=== PATIENT | female | born 1965 | race Hispanic/Latino ===

== ENCOUNTER 2019-09-13 06:17 | Day surgery (SDC) | payer BC ==
[2019-09-08 11:57] LABS: BASOPHILS % (AUTO) 0.7 % (0.0-5.0); EOSINOPHILS % (AUTO) 3.7 % (0.0-8.0); HEMATOCRIT 41.2 % (36-48); LYMPHOCYTES % (AUTO) 26.2 % (21.0-51.0); MEAN CORPUSCULAR HGB CONC 31.1 g/dL (32.0-36.0); MEAN CORPUSCULAR VOLUME 86.9 fL (79-99); MONOCYTES % (AUTO) 6.6 % (3.0-13.0); NEUTROPHILS % (AUTO) 62.1 % (40.0-77.0); PLATELET COUNT (AUTO) 201 K/uL (130-400); RED BLOOD CELL COUNT(AUTO) 4.74 MIL/uL (4.00-5.50); WHITE BLOOD COUNT (AUTO) 6.8 K/uL (4.8-10.8)
[2019-09-09 10:19] VITALS: BP 154/82
[~2019-09-13] VITALS: Ht 165.1 cm; Wt 101.8 kg
[2019-09-13] VITALS (17 sets, daily range): BP systolic 129–154; BP diastolic 62–78
[~2019-09-13 06:17] MED LIST: ACET-66 PO; IBUP-2784 PO
[2019-09-13] MEDS ORDERED: LACTATED RINGERS 1000ML 1,000 ML IV ONE (07:23)
[2019-09-13] MEDS ORDERED: PROPOFOL 10 MG/ML 20ML VIAL IV ONE (08:49)
[2019-09-13] MEDS ORDERED: FENTANYL CITRATE PF 50 MCG/1 ML 2ML VIAL ONE (08:50)
--- NOTE | 2019-09-13 11:15 | NUR ---
Pt discharged home, spouse picked her up, tolerating water, ambulating well, voided just prior to discharge. Pt with very little red blood to pad when arriving to day patient. No further bleeding noted upon discharge. Pad changed. Pt denies any further questions at this time. Addendum: 09/13/19 at 1319 by JOAQUINA MATIAS RN RN Pt given prescription for Tylenol #3.
== END 2019-09-13 11:15 | disposition home or self-care (01) ==
LOC: DAH 06:17
PROVIDERS: ATTEND Specialist
DX: N95.0 Postmenopausal bleeding (principal); N85.4 Malposition of uterus; Z88.0 Allergy status to penicillin; E66.01 Morbid (severe) obesity due to excess calories; Z68.37 Body mass index [BMI] 37.0-37.9, adult; Z98.890 Other specified postprocedural states; Z79.899 Other long term (current) drug therapy
CPT/HCPCS: 36415; 58120; 84703; 85025; 86850; 86900; 86901; A4215; A4221; A4222; A4223; A4351; A6260; J2704; J3010; J7030; J7120; U0003

== ENCOUNTER 2020-06-22 08:00 | Inpatient (IN) | payer BC ==
[~2020-06-22] VITALS: Ht 162.6 cm; Wt 103.4 kg
[2020-06-22 10:40] LABS: EOSINOPHILS % (AUTO) 2.4 % (0.0-8.0); HEMATOCRIT 42.2 % (36-48); LYMPHOCYTES % (AUTO) 21.5 % (21.0-51.0); MEAN CORPUSCULAR HEMOGLOBIN 27.9 pg (27.0-33.0); MEAN CORPUSCULAR HGB CONC 31.8 g/dL (32.0-36.0); MEAN CORPUSCULAR VOLUME 87.9 fL (79-99); MONOCYTES % (AUTO) 5.2 % (3.0-13.0); NEUTROPHILS % (AUTO) 68.9 % (40.0-77.0); PLATELET COUNT (AUTO) 208 K/uL (130-400); RED CELL DISTRIBUTION WIDTH 13.8 % (11.0-15.5)
[2020-06-22] MEDS ORDERED: LACTATED RINGERS 1000ML 1,000 ML IV SCH (11:45)
[2020-06-25 16:13] VITALS: BP 144/77
[2020-06-27] VITALS (23 sets, daily range): BP systolic 116–160; BP diastolic 50–80
[2020-06-27] MEDS ORDERED: LIDOCAINE PF 100MG/5ML (2%) SYRINGE 5ML ONE (09:56)
[2020-06-27] MEDS ORDERED: DEXAMETHASONE SOD PHOSPHATE 10MG/ML 1ML VIAL ONE (09:56)
[2020-06-27] MEDS ORDERED: SUCCINYLCHOLINE CHLORIDE 20 MG/ML 10 ML VIAL ONE (09:56)
[2020-06-27] MEDS ORDERED: ROCURONIUM 10MG/1ML SYR 10 MG/ML ML ONE (09:57)
[2020-06-27] MEDS ORDERED: FENTANYL CITRATE PF 50 MCG/1 ML 2ML VIAL ONE ×2 (09:57→11:34)
[2020-06-27] MEDS ORDERED: ONDANSETRON 4MG INJ ONE (09:57)
[2020-06-27] MEDS ORDERED: NEOSTIGMINE 5MG/5ML SYR IV ONE (09:57)
[2020-06-27] MEDS ORDERED: CLINDAMYCIN IVPB 600MG/50ML 50 ML IV ONE (09:57)
[2020-06-27] MEDS ORDERED: PROPOFOL 10 MG/ML 20ML VIAL IV ONE (09:57)
[2020-06-27] MEDS ORDERED: LEVOFLOXACIN 500 MG/D5W 100 ML 100 ML ONE (09:57)
[2020-06-27] MEDS ORDERED: MIDAZOLAM HCL 1 MG/ML 2ML VIAL ONE (09:57)
[2020-06-27] MEDS ORDERED: GLYCOPYRROLATE 1 MG/5 ML SYRINGE ONE (09:57)
[2020-06-27] MEDS: CLINDAMYCIN IVPB 600MG/50ML 50 ML IV SCH ×2 (09:58→10:00)
[2020-06-27] MEDS: LEVOFLOXACIN 500 MG/D5W 100 ML 100 ML IV SCH ×2 (10:00→10:25)
[2020-06-27] MEDS ORDERED: MEPERIDINE-PF 25 MG/ML SYG ONE ×4 (10:00→12:36)
[2020-06-27] MEDS ORDERED: IBUPROFEN 600 MG TABLET PO PRN (12:15)
[2020-06-27] MEDS ORDERED: BISACODYL 10 MG SUPP.RECT RC PRN (12:15)
[2020-06-27] MEDS ORDERED: PROMETHAZINE HCL 25 MG/ML 1ML AMPULE IM PRN (12:15)
[2020-06-27] MEDS: ACETAMINOPHEN WITH CODEINE 1 TAB TAB PO PRN (13:54)
[2020-06-27] MEDS: DEXTROSE 5%-LACTATED RINGERS 1,000 ML IV PRN ×2 (13:55→19:58)
[2020-06-27] MEDS: PROMETHAZINE HCL 25 MG/ML 1ML AMPULE IM PRN ×2 (15:10→19:57)
[2020-06-27] MEDS: MEPERIDINE-PF 25 MG/ML SYG IM PRN (15:11)
[2020-06-27] MEDS ORDERED: MEPERIDINE-PF 75 MG/ML SYG ONE (19:38)
[2020-06-27] MEDS ORDERED: PHARMACY COMMUNICATION MISC SCH (19:45)
[2020-06-27] MEDS ORDERED: IBUPROFEN 800 MG TAB ONE (20:31)
[2020-06-27] MEDS: IBUPROFEN 800 MG TAB PO SCH (20:33)
[2020-06-27] MEDS: DOCUSATE SODIUM 100 MG CAP PO PRN (20:33)
[2020-06-28] MEDS: PROMETHAZINE HCL 25 MG/ML 1ML AMPULE IM PRN (02:14)
[2020-06-28] MEDS: MEPERIDINE-PF 25 MG/ML SYG IM PRN (02:14)
[2020-06-28 03:15] VITALS: BP 152/92
[2020-06-28] MEDS ORDERED: IBUPROFEN 800 MG TAB ONE (05:23)
[2020-06-28] MEDS ORDERED: IBUPROFEN 800 MG TAB PO PRN (08:00)
[2020-06-28] MEDS ORDERED: HYDROCODONE/ACETAMINOPHEN 5/325 MG TAB PO PRN (08:00)
[2020-06-28 08:01] LABS: HEMATOCRIT 35.9 % (36-48); MEAN CORPUSCULAR HEMOGLOBIN 28.4 pg (27.0-33.0); MEAN CORPUSCULAR HGB CONC 32.3 g/dL (32.0-36.0); RED BLOOD CELL COUNT(AUTO) 4.08 MIL/uL (4.00-5.50); RED CELL DISTRIBUTION WIDTH 14.2 % (11.0-15.5); WHITE BLOOD COUNT (AUTO) 12.4 K/uL (4.8-10.8)
[2020-06-28] MEDS: SIMETHICONE 80 MG TAB.CHEW PO PRN ×2 (08:17→18:14)
[2020-06-28] MEDS: DOCUSATE SODIUM 100 MG CAP PO PRN ×2 (08:17→20:30)
[2020-06-28 08:18] VITALS: BP 149/78
[2020-06-28] MEDS: ACETAMINOPHEN WITH CODEINE 1 TAB TAB PO PRN ×2 (08:18→18:09)
[2020-06-28 12:21] VITALS: BP 124/67
[2020-06-28 16:18] VITALS: BP 121/54
[2020-06-28 19:40] VITALS: BP 129/55
[2020-06-28] MEDS: IBUPROFEN 800 MG TAB PO SCH (20:31)
[2020-06-28 23:26] VITALS: BP 123/54
[2020-06-29 03:26] VITALS: BP 121/51
[2020-06-29] MEDS: ACETAMINOPHEN WITH CODEINE 1 TAB TAB PO PRN (03:26)
[2020-06-29] MEDS: IBUPROFEN 800 MG TAB PO SCH (04:27)
[2020-06-29 07:20] VITALS: BP 133/70
[2020-06-29] MEDS: DOCUSATE SODIUM 100 MG CAP PO PRN (08:53)
== END 2020-06-29 10:00 | disposition home or self-care (01) | DRG 743 ==
LOC: DAHIP 06-27 07:55 → WSH 06-27 12:52
PROVIDERS: ADMIT Specialist; ATTEND Specialist
PROC: 0UB20ZZ Excision of Bilateral Ovaries, Open Approach (ICD-10-PCS; 2020-06-27)
PROC: 0UT90ZZ Resection of Uterus, Open Approach (ICD-10-PCS; principal; 2020-06-27 10:40)
PROC: 0UB70ZZ Excision of Bilateral Fallopian Tubes, Open Approach (ICD-10-PCS; 2020-06-27 10:40)
DX: N95.0 Postmenopausal bleeding (principal); Z20.822 Contact with and (suspected) exposure to COVID-19; E66.9 Obesity, unspecified; Z68.39 Body mass index [BMI] 39.0-39.9, adult; Z88.0 Allergy status to penicillin; Z82.5 Family history of asthma and other chronic lower respiratory diseases
CPT/HCPCS: 36415; 85025; 85027; 86850; 86900; 86901; A4344; G0378; J0330; J1100; J1956; J2001; J2175; J2250; J2405; J2550; J2704; J2710; J3010; J3490; J7120; U0003